=== PATIENT | male | born 1955 | race Caucasian/White ===

== ENCOUNTER 2018-03-02 06:02 | Emergency (ER) | payer OTHER ==
[2018-03-02 06:16] VITALS: TEMP 97.7; BMI 31.9
[2018-03-02] MEDS ORDERED: ASPIRIN 81 MG CHEWABLE TABLETS ONE (06:24)
[2018-03-02] MEDS ORDERED: METOPROLOL TARTRATE 5 MG/5 ML VIAL ONE (06:26)
[2018-03-02] MEDS ORDERED: SODIUM CHLORIDE 0.9% 500 ML INFUS.BAG IV ONE (06:34)
[2018-03-02] MEDS ORDERED: CLOPIDOGREL BISULFATE 300 MG TABLET PO ONE (06:39)
[2018-03-02] MEDS ORDERED: HEPARIN NA (PORCINE) 5,000 UNITS/ML 1ML VIAL IVPUSH PRN (06:39)
[2018-03-02] MEDS ORDERED: CLOPIDOGREL BISULFATE 300 MG TABLET ONE (06:40)
[2018-03-02] MEDS ORDERED: HEPARIN NA (PORCINE) 5,000 UNITS/ML 1ML VIAL ONE (06:40)
[2018-03-02] MEDS ORDERED: METOPROLOL TARTRATE 5 MG/5 ML VIAL IVPUSH ONE (06:40)
[2018-03-02] MEDS ORDERED: HEPARIN INFUSION - 25,000 UNITS/500 ML INFUS.BAG IVPB ONE (06:40)
[2018-03-02 06:41] LABS: BASO % 0.3 % (0-2.0); HEMATOCRIT 54.4 % (35.4-49); HEMOGLOBIN 17.9 GM/dL (11.7-16.9); LYMPH % 13.5 % (8-40); MCH 27.9 pg (25.7-33.7); MCHC 32.9 g/dl (32.0-35.9); MEAN CELL VOLUME 84.6 fl (80-96); MEAN PLT VOLUME 7.6 fl (7.5-11.1); MONO % 12.8 % (3.8-10.2); NEUT % 73.4 % (42.8-82.8); PLATELET COUNT 253 K/MM3 (134-434); RBC 6.44 M/mm3 (4.00-5.60); RDW 13.7 % (11.9-15.9); VENOUS PC02 40.8 mmHg (38-52); VENOUS PH 7.42 (7.32-7.42); WHITE BLOOD COUNT 18.8 K/mm3 (4.0-10.0)
[2018-03-02] MEDS ORDERED: HEPARIN - 25,000 UNIT in SODIUM CHLORIDE 495 ML IV SCH (06:45)
[2018-03-02] MEDS ORDERED: ASPIRIN 81 MG CHEWABLE TABLETS PO ONE (06:50)
--- NOTE | 2018-03-02 06:57 | PDOC ---
History of Present Illness - General Chief Complaint: Shortness of Breath Stated Complaint: S.O.B. Time Seen by Provider: 03/02/18 06:34 History Source: Patient Exam Limitations: No Limitations - History of Present Illness Initial Comments: 62 y/o M hx of HTN presents with sharp CP across chest from yesterday, constant in nature along with SOB, worse with lying flat. Mentions 2 days ago, had some vague R shoulder discomfort while brushing snow; that night he then had L shoulder pain which has now subsided. The CP started yesterday at rest and states he did no physical work yesterday either. +Diaphoresis. Denies recent travel, fever, chills, cough, abd pain, n/v, dizziness, syncope. Denies ever having this type of pain before. Denies cardiac surgeries. Denies smoking or drug use. 03/02/18 06:50 Past History - Past Medical History Allergies/Adverse Reactions: Allergies Allergy/AdvReac Type Severity Reaction Status Date / Time No Known Allergies Allergy Verified 03/02/18 06:16 Home Medications: Ambulatory Orders Losartan/Hydrochlorothiazide [Losartan-Hctz 100-25 mg Tab] 1 each PO DAILY 03/02 COPD: No HTN: Yes - Suicide/Smoking/Psychosocial Hx Smoking History: Never smoked Have you smoked in the past 12 months: No Information on smoking cessation initiated: No Hx Alcohol Use: No Drug/Substance Use Hx: No Substance Use Type: None Cardiac Specific PMH - Complaint Specific PMHX Abdominal Aortic Aneurysm: No Angina: No Cardiac Arrhythmia: No Cardiac Stent: No GERD: No Myocardial Infarction: No Pacemaker: No Pulmonary Embolus: No Valvular Heart Disease: No Peripheral Vascular Disease: No Review of Systems - Review of Systems Comments:: See HPI 03/02/18 06:52 *Physical Exam - Vital Signs Last Vital Signs Temp Pulse Resp BP Pulse Ox 97.7 F 122 H 23 H 119/77 100 03/02/18 06:07 03/02/18 07:05 03/02/18 06:07 03/02/18 06:58 03/02/18 06:28 - Physical Exam General Appearance: Yes: Other (Patient appears diaphoretic but no in respiratory distress) Respiratory/Chest: positive: Other (Unable to auscultate lungs well; no obvious rhonchi, rales or wheezing noted) Cardiovascular: positive: Tachycardia. negative: Gallop/S3, Gallop/S4 Gastrointestinal/Abdominal: positive: Soft. negative: Tender, Distended, Guarding, Rebound, Tenderness Extremity: positive: Normal Inspection. negative: Pedal Edema, Calf Tenderness Neurologic: positive: Fully Oriented, Alert ED Treatment Course - LABORATORY CBC & Chemistry Diagram: 03/02/18 06:34 03/02/18 06:28 - ADDITIONAL ORDERS Additional order review: Laboratory Results 03/02/18 03/02/18 03/02/18 06:34 06:34 06:29 PT with INR 14.80 H INR 1.25 H PTT (Actin FS) 32.2 VBG pH 7.42 POC VBG pCO2 40.8 POC VBG pO2 29.0 Mixed VBG HCO3 25.9 H POC Glucometer 191.34748 03/02/18 06:29 POC Glucometer 191.75508 - RADIOLOGY Radiology Studies Ordered: Category Date Time Status CHEST X-RAY PORTABLE* [RAD] Urgent Radiology 03/02/18 06:29 Taken - Medications Given in the ED: ED Medications Discontinued Medications Generic Name Dose Route Start Last Admin Trade Name Freq PRN Reason Stop Dose Admin Aspirin 324 mg 03/02/18 06:50 03/02/18 06:55 Asa - PO 03/02/18 06:51 324 mg ONCE ONE Administration Clopidogrel Bisulfate 600 mg 03/02/18 06:39 03/02/18 06:50 Plavix - PO 03/02/18 06:40 600 mg ONCE ONE Administration Metoprolol Tartrate 5 mg 03/02/18 06:40 03/02/18 06:10 Lopressor Injection - IVPUSH 03/02/18 06:41 5 mg ONCE ONE Administration Sodium Chloride 2,000 ml 03/02/18 06:34 03/02/18 06:43 Normal Saline - IV 03/02/18 06:35 2,000 ml ONCE ONE Administration Medical Decision Making - Medical Decision Making 62 y/o M hx of HTN presents with diaphoresis, CP and SOB. Initial placement on monitor showed HR in 160s. Initial EKG was hard to read given the fast rhythm, but concern for raised for possible MO. Patient was placed on 2L NC oxygen, 2 IV lines started, FS was done and was normal. Patient was given ASA 325 mg and Metoprolol 5 mg IVP with improvement in HR to 115s. Repeat EKG showed concern for posterior MO with ST depression in V1-V3. Heparin drip was started and patient also received Plavix 600 mg. Portable CXR - wet read done by Dr. Smith with no evidence of fluid overload, PNA, obvious PTX; slightly widened mediastinum was noted. Patient's BP on both arms were the same. 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 Marie at [facility] 03/02/18 07:08 *DC/Admit/Observation/Transfer Diagnosis at time of Disposition: Posterior MO - Discharge Dispostion Disposition: TRANSFER ACUTE CARE/OTHER HOSP Condition at time of disposition: Fair Decision to Admit order: No - Referrals Referrals: Brandon Herrera MD [Primary Care Provider] - - Patient Instructions - Post Discharge Activity - Transfer to Acute Care Facility Receiving Facility: [facility] Accepting Physician:: Dr. Marie
[2018-03-02 06:58] LABS: INR 1.25 (0.83-1.09); PROTHROMBIN TIME (PATIENT) 14.8 SEC (9.7-13.0)
[2018-03-02 07:01] LABS: ACTIVATED PTT 32.2 SECONDS (25.2-36.5)
[2018-03-02 07:02] VITALS: BP 119/77
[2018-03-02 07:06] VITALS: PULSE 122
[2018-03-02 07:24] LABS: ALBUMIN 4.3 g/dl (3.4-5.0); ALK PHOS 78 U/L (45-117); ANION GAP 13 MMOL/L (8-16); BILIRUBIN,TOTAL 3.3 mg/dL (0.2-1); BLOOD UREA NITROGEN 19 mg/dL (7-18); CALCIUM 9.3 mg/dL (8.5-10.1); CHLORIDE 98 mmol/L (98-107); CO2 26 mmol/L (21-32); CREATININE 1.3 mg/dL (0.55-1.3); GLUCOSE,RANDOM 176 mg/dL (74-106); N-TERMINAL BNP 2401.1 pg/ml (5-125); POTASSIUM 4.6 mmol/L (3.5-5.1); SGOT/AST 291 U/L (15-37); SGPT/ALT 94 U/L (13-61); SODIUM 137 mmol/L (136-145); TOT PROT 7.4 g/dl (6.4-8.2)
--- NOTE | 2018-03-03 12:11 | EKG ---
Test Reason : Blood Pressure : / mmHG Vent. Rate : 160 BPM Atrial Rate : 312 BPM P-R Int : 000 ms QRS Dur : 074 ms QT Int : 298 ms P-R-T Axes : 246 166 -20 degrees QTc Int : 486 ms POOR DATA QUALITY, INTERPRETATION MAY BE ADVERSELY AFFECTED ATRIAL FLUTTER WITH VARIABLE A-V BLOCK ABNORMAL RIGHT AXIS DEVIATION LATERAL INFARCT , POSSIBLY ACUTE MARKED ST ABNORMALITY, POSSIBLE ANTERIOR SUBENDOCARDIAL INJURY ABNORMAL ECG WHEN COMPARED WITH ECG OF 30-JUL-2014 09:26, ATRIAL FLUTTER HAS REPLACED NORMAL SINUS RHYTHM ABNORMAL RIGHT AXIS DEVIATION IS NOW PRESENT Confirmed by Jovanny Langley ([id number]) on 03/03/2018 12:10:48 PM Referred By: Confirmed By:Jovanny Langley
--- NOTE | 2018-03-06 15:42 | EKG ---
Test Reason : Blood Pressure : / mmHG Vent. Rate : 123 BPM Atrial Rate : 294 BPM P-R Int : 000 ms QRS Dur : 086 ms QT Int : 364 ms P-R-T Axes : 000 161 011 degrees QTc Int : 521 ms SUSPECT ARM LEAD REVERSAL, INTERPRETATION ASSUMES NO REVERSAL ATRIAL FLUTTER WITH VARIABLE A-V BLOCK RIGHT VENTRICULAR HYPERTROPHY WITH REPOLARIZATION ABNORMALITY LATERAL INFARCT (CITED ON OR BEFORE 02-MAR-2018) ACUTE [place] / STEMI ABNORMAL ECG WHEN COMPARED WITH ECG OF 02-MAR-2018 06:45, SERIAL CHANGES OF LATERAL INFARCT PRESENT Confirmed by CHOLO REESE, JASON ([id number]) on 03/06/2018 3:41:59 PM Referred By: Confirmed By:JASON EMMANUEL MD
--- NOTE | 2018-03-06 15:43 | EKG ---
Test Reason : Blood Pressure : / mmHG Vent. Rate : 120 BPM Atrial Rate : 300 BPM P-R Int : 000 ms QRS Dur : 090 ms QT Int : 294 ms P-R-T Axes : 000 161 -01 degrees QTc Int : 415 ms SUSPECT ARM LEAD REVERSAL, INTERPRETATION ASSUMES NO REVERSAL ATRIAL FLUTTER WITH VARIABLE A-V BLOCK RIGHT VENTRICULAR HYPERTROPHY WITH REPOLARIZATION ABNORMALITY LATERAL INFARCT (CITED ON OR BEFORE 02-MAR-2018) T WAVE ABNORMALITY, CONSIDER INFERIOR ISCHEMIA ACUTE [place] / STEMI ABNORMAL ECG WHEN COMPARED WITH ECG OF 02-MAR-2018 06:31, NO SIGNIFICANT CHANGE WAS FOUND Confirmed by CHOLO REESE, JASON ([id number]) on 03/06/2018 3:42:55 PM Referred By: Confirmed By:JASON EMMANUEL MD
--- NOTE | 2018-03-06 15:43 | EKG ---
Test Reason : Blood Pressure : / mmHG Vent. Rate : 120 BPM Atrial Rate : 300 BPM P-R Int : 000 ms QRS Dur : 092 ms QT Int : 262 ms P-R-T Axes : 202 166 -02 degrees QTc Int : 370 ms SUSPECT ARM LEAD REVERSAL, INTERPRETATION ASSUMES NO REVERSAL ATRIAL FLUTTER WITH VARIABLE A-V BLOCK INCOMPLETE RIGHT BUNDLE BRANCH BLOCK RIGHT VENTRICULAR HYPERTROPHY WITH REPOLARIZATION ABNORMALITY LATERAL INFARCT (CITED ON OR BEFORE 02-MAR-2018) INFERIOR INJURY PATTERN ACUTE [place] / STEMI ABNORMAL ECG WHEN COMPARED WITH ECG OF 02-MAR-2018 06:18, SERIAL CHANGES OF EVOLVING LATERAL INFARCT PRESENT Confirmed by JASON EMMANUEL MD ([id number]) on 03/06/2018 3:42:37 PM Referred By: Confirmed By:JASON EMMANUEL MD
== END 2018-03-02 07:10 | disposition short-term general hospital (02) ==
LOC: JER 06:02
PROC: 3E033GC Introduction of Other Therapeutic Substance into Peripheral Vein, Percutaneous Approach (ICD-10-PCS; principal; 2018-03-02)
PROC: 3E033GC Introduction of Other Therapeutic Substance into Peripheral Vein, Percutaneous Approach (ICD-10-PCS; 2018-03-02)
DX: I21.29 ST elevation (STEMI) myocardial infarction involving other sites (principal); I10 Essential (primary) hypertension
CPT/HCPCS: 36415; 71045-TC-FY; 80053; 82550; 82553; 82803; 82962; 83880; 84484; 85025; 85610; 85730; 93005; 93010; 99285-25; J1644

== ENCOUNTER 2020-09-24 04:26 | Day surgery (SDC) | payer BC ==
[2020-09-23 11:04] VITALS: BMI 31.9
[2020-09-24] MEDS ORDERED: DEXAMETHASONE SOD PHOSPHATE 4 MG/1 ML VIAL ONE (07:28)
[2020-09-24] MEDS ORDERED: DEXAMETHASONE SOD PHOSPHATE 10 MG/1 ML VIAL ONE (09:43)
[2020-09-24] MEDS ORDERED: BUPIVACAINE HCL/PF 0.5% (5MG/ML) 10 ML VIAL ONE (10:12)
[2020-09-24] MEDS ORDERED: LIDOCAINE HCL 1% PRESERVATIVE FREE - 30ML VIAL IJ ONE (10:21)
[2020-09-24] MEDS ORDERED: IOHEXOL 180 MG/1 ML ML IJ ONE (10:22)
[2020-09-24] MEDS ORDERED: DEXAMETHASONE SOD PHOSPHATE 10 MG/1 ML VIAL IM ONE (10:22)
[2020-09-24 10:59] VITALS: BP 122/70; PULSE 58; TEMP 98.3
== END 2020-09-24 11:00 | disposition home or self-care (01) ==
LOC: JASU-SURG 04:26
PROVIDERS: ATTEND Pain Medicine Pain Medicine
PROC: 3E0R33Z Introduction of Anti-inflammatory into Spinal Canal, Percutaneous Approach (ICD-10-PCS; 2020-09-24)
PROC: B01BYZZ Fluoroscopy of Spinal Cord using Other Contrast (ICD-10-PCS; 2020-09-24)
PROC: 3E0R3BZ Introduction of Anesthetic Agent into Spinal Canal, Percutaneous Approach (ICD-10-PCS; principal; 2020-09-24 10:30)
DX: M54.16 Radiculopathy, lumbar region (principal)
CPT/HCPCS: 76000-TC-FY; J1100

== ENCOUNTER 2020-10-22 04:57 | Day surgery (SDC) | payer BC ==
[2020-10-20 14:41] VITALS: BMI 31.3
[2020-10-22] MEDS ORDERED: BUPIVACAINE HCL/PF 0.75% 10 ML VIAL ONE (07:21)
[2020-10-22] MEDS ORDERED: LIDOCAINE HCL/PF 1% SDV 5ML VIAL ONE (07:21)
[2020-10-22] MEDS ORDERED: IOHEXOL 180 MG/1 ML ML IJ ONE (09:45)
[2020-10-22] MEDS ORDERED: BUPIVACAINE HCL/PF 0.75% 10 ML VIAL NR ONE (09:46)
[2020-10-22] MEDS ORDERED: LIDOCAINE 1% P/F 10 MG/ML VIAL INF ONE (09:46)
[2020-10-22 10:40] VITALS: BP 130/80; PULSE 80; TEMP 97
== END 2020-10-22 10:41 | disposition home or self-care (01) ==
LOC: JASU-SURG 04:57
PROVIDERS: ATTEND Pain Medicine Pain Medicine
PROC: BR16YZZ Fluoroscopy of Lumbar Facet Joint(s) using Other Contrast (ICD-10-PCS; 2020-10-22)
PROC: 3E0T3BZ Introduction of Anesthetic Agent into Peripheral Nerves and Plexi, Percutaneous Approach (ICD-10-PCS; principal; 2020-10-22 08:30)
DX: M47.816 Spondylosis without myelopathy or radiculopathy, lumbar region (principal)
CPT/HCPCS: 76000-TC-FY

== ENCOUNTER 2021-07-27 08:00 | Inpatient (IN) | payer BC, OTHER ==
[2021-08-01 11:23] VITALS: BMI 31.9
[2021-08-03] MEDS ORDERED: VANCOMYCIN 1,000 MG VIAL (RESTRICTED TO ID ONLY) ONE (10:57)
[2021-08-03] MEDS ORDERED: BACITRACIN 15 GM TUBE TOPICAL OINTMENT ONE (10:58)
[2021-08-03] MEDS ORDERED: BUPIVACAINE HCL/PF 0.5% (5MG/ML) 10 ML VIAL ONE (10:58)
[2021-08-03] MEDS ORDERED: THROMBIN (BOVINE) 5,000 UNIT VIAL TP ONE ×2 (10:58→14:04)
[2021-08-03] MEDS ORDERED: ONDANSETRON 4 MG/2 ML VIAL IVPUSH PRN ×3 (12:08→14:59)
[2021-08-03] MEDS ORDERED: PROMETHAZINE HCL 25 MG/1 ML VIAL IVPB PRN ×2 (12:08→14:59)
[2021-08-03] MEDS ORDERED: LACTATED RINGERS SOLUTION 1,000 ML IV SCH (12:15)
[2021-08-03] MEDS ORDERED: ROCURONIUM BROMIDE 50 MG/5 ML SYRINGE ONE (12:28)
[2021-08-03] MEDS ORDERED: MIDAZOLAM HCL 2 MG/2 ML SINGLE DOSE VIAL ONE (12:29)
[2021-08-03] MEDS ORDERED: LIDOCAINE HCL/PF 2% SDV 5ML VIAL ONE ×2 (12:30→12:31)
[2021-08-03] MEDS ORDERED: ETOMIDATE 20 MG/10 ML AMPUL IVPUSH ONE (12:30)
[2021-08-03] MEDS ORDERED: GLYCOPYRROLATE 0.2 MG/1 ML VIAL ONE ×2 (12:30→14:32)
[2021-08-03] MEDS ORDERED: SODIUM CHLORIDE 0.9% P/F 10 ML VIAL IJ ONE (12:31)
[2021-08-03] MEDS ORDERED: ceFAZolin SODIUM 1 GM VIAL ONE ×2 (12:31→20:48)
[2021-08-03] MEDS ORDERED: VANCOMYCIN 1,000 MG VIAL (RESTRICTED TO ID ONLY) IVPB ONE (14:03)
[2021-08-03] MEDS ORDERED: BUPIVACAINE HCL/PF 0.5% (5MG/ML) 10 ML VIAL IJ ONE (14:04)
[2021-08-03] MEDS ORDERED: ACETAMINOPHEN INJECTION 100 ML IVPB ONE (14:17)
[2021-08-03] MEDS ORDERED: NEOSTIGMINE METHYLSULFATE 0.5 MG/1 ML - 10 ML MDV ONE (14:32)
[2021-08-03] MEDS ORDERED: ACETAMINOPHEN 325 MG TABLET (FP) PO PRN (14:54)
[2021-08-03] MEDS ORDERED: BISACODYL 10 MG SUPP.RECT RC PRN (14:54)
[2021-08-03] MEDS ORDERED: DEXAMETHASONE SOD PHOSPHATE 4 MG/1 ML VIAL IVPUSH PRN (14:59)
[2021-08-03] MEDS ORDERED: D5-1/2NS+20 MEQ KCL - 1,000 ML IV SCH (15:00)
[2021-08-03] MEDS ORDERED: HYDROmorphone *PCA* 10MG/50ML DISP.SYRIN PCA SCH (15:00)
[2021-08-03] MEDS: D5-1/2NS+20 MEQ KCL - 20 MEQ/1,000 ML INFUS.BAG IV SCH (15:15)
[2021-08-03 16:49] LABS: HEMATOCRIT 41.1 % (35.4-49); HEMOGLOBIN 14.2 GM/dL (11.7-16.9); MCH 29.1 pg (25.7-33.7); MCHC 34.6 g/dl (32.0-35.9); MEAN CELL VOLUME 84.2 fl (80-96); MEAN PLT VOLUME 7.7 fl (7.5-11.1); PLATELET COUNT 199 10^3/uL (134-434); RBC 4.88 M/mm3 (4.00-5.60); RDW 13.6 % (11.9-15.9)
[2021-08-03 17:09] LABS: CALCIUM 8.5 mg/dL (8.5-10.1)
[2021-08-03 17:10] LABS: BLOOD UREA NITROGEN 16.1 mg/dL (7-18)
[2021-08-03] MEDS: diazePAM 5 MG TABLET PO SCH ×2 (19:59→21:57)
[2021-08-03] MEDS: INSULIN SLIDING SCALE (NOVOLOG) 1 VIAL SQ SCH ×2 (20:00→21:53)
[2021-08-03] MEDS ORDERED: DEXTROSE 5%-WATER - 50 ML IVPB ONE (20:48)
[2021-08-03] MEDS: CEFAZOLIN 1 GM in DEXTROSE 5%-WATER - 1 GM/50 ML IVPB IVPB SCH (21:50)
[2021-08-03] MEDS: metoPROLOL SUCCINATE 25 MG TAB.SR.24H (FP) PO SCH (21:56)
[2021-08-03] MEDS: ATORVASTATIN CA 80 MG TABLET (FP) PO SCH (21:56)
[2021-08-03] MEDS: GABAPENTIN 300 MG CAPSULE PO SCH (21:56)
[2021-08-03] MEDS: DOCUSATE SODIUM 100 MG CAPSULE (FP) PO SCH (21:56)
[2021-08-04] MEDS: D5-1/2NS+20 MEQ KCL - 20 MEQ/1,000 ML INFUS.BAG IV SCH (01:55)
[2021-08-04] MEDS ORDERED: ceFAZolin SODIUM 1 GM VIAL ONE ×2 (05:15→12:16)
[2021-08-04] MEDS ORDERED: DEXTROSE 5%-WATER - 50 ML IVPB ONE ×2 (05:15→12:16)
[2021-08-04] MEDS: CEFAZOLIN 1 GM in DEXTROSE 5%-WATER - 1 GM/50 ML IVPB IVPB SCH ×2 (05:17→12:20)
[2021-08-04] MEDS: DOCUSATE SODIUM 100 MG CAPSULE (FP) PO SCH ×3 (05:18→21:16)
[2021-08-04] MEDS: GABAPENTIN 300 MG CAPSULE PO SCH ×3 (05:18→21:16)
[2021-08-04] MEDS: diazePAM 5 MG TABLET PO SCH ×3 (05:18→21:16)
[2021-08-04] MEDS ORDERED: INSULIN (NOVOLOG) ASPART 100 UNITS/ML 10ML VIAL ONE ×2 (05:40→21:00)
[2021-08-04] MEDS: metFORMIN HCL 500 MG TABLET (FP) PO SCH (06:31)
[2021-08-04] MEDS: INSULIN SLIDING SCALE (NOVOLOG) 1 VIAL SQ SCH ×4 (06:31→21:21)
[2021-08-04] MEDS: LOSARTAN 50MG/HCTZ 12.5MG 1 TAB PO SCH (10:47)
[2021-08-04] MEDS: CHOLECALCIFEROL (VIT D3) 400 UNIT (10 MCG) TABLET PO SCH (10:47)
[2021-08-04] MEDS ORDERED: ACETAMINOPHEN 325 MG TABLET (FP) PO PRN ×2 (19:30)
[2021-08-04] MEDS ORDERED: oxyCODONE HCL 5 MG TABLET PO PRN (19:30)
[2021-08-04] MEDS: oxyCODONE HCL 5 MG TABLET PO PRN (21:12)
[2021-08-04] MEDS: metoPROLOL SUCCINATE 25 MG TAB.SR.24H (FP) PO SCH (21:15)
[2021-08-04] MEDS: ATORVASTATIN CA 80 MG TABLET (FP) PO SCH (21:15)
[2021-08-05] MEDS: diazePAM 5 MG TABLET PO SCH ×3 (06:30→22:01)
[2021-08-05] MEDS: metFORMIN HCL 500 MG TABLET (FP) PO SCH (06:30)
[2021-08-05] MEDS: INSULIN SLIDING SCALE (NOVOLOG) 1 VIAL SQ SCH ×4 (06:31→22:01)
[2021-08-05] MEDS: GABAPENTIN 300 MG CAPSULE PO SCH ×3 (06:31→22:01)
[2021-08-05] MEDS: DOCUSATE SODIUM 100 MG CAPSULE (FP) PO SCH ×3 (06:31→22:00)
[2021-08-05] MEDS: CHOLECALCIFEROL (VIT D3) 400 UNIT (10 MCG) TABLET PO SCH (09:43)
[2021-08-05] MEDS: LOSARTAN 50MG/HCTZ 12.5MG 1 TAB PO SCH (09:44)
[2021-08-05] MEDS: oxyCODONE HCL 5 MG TABLET PO PRN ×2 (10:02→14:16)
[2021-08-05] MEDS ORDERED: INSULIN (NOVOLOG) ASPART 100 UNITS/ML 10ML VIAL ONE ×2 (11:25→21:51)
[2021-08-05] MEDS: metoPROLOL SUCCINATE 25 MG TAB.SR.24H (FP) PO SCH (22:01)
[2021-08-05] MEDS: ATORVASTATIN CA 80 MG TABLET (FP) PO SCH (22:01)
[2021-08-06] MEDS: metFORMIN HCL 500 MG TABLET (FP) PO SCH (06:28)
[2021-08-06] MEDS: diazePAM 5 MG TABLET PO SCH ×3 (06:28→21:09)
[2021-08-06] MEDS: GABAPENTIN 300 MG CAPSULE PO SCH ×3 (06:29→21:10)
[2021-08-06] MEDS: INSULIN SLIDING SCALE (NOVOLOG) 1 VIAL SQ SCH ×4 (06:29→21:10)
[2021-08-06] MEDS: DOCUSATE SODIUM 100 MG CAPSULE (FP) PO SCH ×3 (06:29→21:09)
[2021-08-06] MEDS: LOSARTAN 50MG/HCTZ 12.5MG 1 TAB PO SCH (09:04)
[2021-08-06] MEDS: CHOLECALCIFEROL (VIT D3) 400 UNIT (10 MCG) TABLET PO SCH (09:04)
[2021-08-06] MEDS ORDERED: MAGNESIUM CITRATE 300 ML BOTTLE PO ONE (09:41)
[2021-08-06] MEDS ORDERED: INSULIN (NOVOLOG) ASPART 100 UNITS/ML 10ML VIAL ONE (11:27)
[2021-08-06] MEDS: metoPROLOL SUCCINATE 25 MG TAB.SR.24H (FP) PO SCH (21:08)
[2021-08-06] MEDS: ATORVASTATIN CA 80 MG TABLET (FP) PO SCH (21:09)
[2021-08-07] MEDS: oxyCODONE HCL 5 MG TABLET PO PRN (03:27)
[2021-08-07] MEDS: diazePAM 5 MG TABLET PO SCH ×3 (06:22→21:38)
[2021-08-07] MEDS: DOCUSATE SODIUM 100 MG CAPSULE (FP) PO SCH ×3 (06:23→21:38)
[2021-08-07] MEDS: GABAPENTIN 300 MG CAPSULE PO SCH ×3 (06:23→21:38)
[2021-08-07] MEDS: metFORMIN HCL 500 MG TABLET (FP) PO SCH (06:24)
[2021-08-07] MEDS: INSULIN SLIDING SCALE (NOVOLOG) 1 VIAL SQ SCH ×4 (06:25→21:44)
[2021-08-07] MEDS: CHOLECALCIFEROL (VIT D3) 400 UNIT (10 MCG) TABLET PO SCH (09:17)
[2021-08-07] MEDS: LOSARTAN 50MG/HCTZ 12.5MG 1 TAB PO SCH (09:17)
[2021-08-07] MEDS: FLUTICASONE/SALMETEROL 100 MCG/50 MCG DISKUS IH SCH ×2 (09:17→21:44)
[2021-08-07] MEDS ORDERED: INSULIN (NOVOLOG) ASPART 100 UNITS/ML 10ML VIAL ONE (10:52)
[2021-08-07] MEDS: ATORVASTATIN CA 80 MG TABLET (FP) PO SCH (21:37)
[2021-08-07] MEDS: metoPROLOL SUCCINATE 25 MG TAB.SR.24H (FP) PO SCH (21:40)
[2021-08-08] MEDS: DOCUSATE SODIUM 100 MG CAPSULE (FP) PO SCH ×2 (05:53→14:09)
[2021-08-08] MEDS: GABAPENTIN 300 MG CAPSULE PO SCH ×2 (05:53→14:09)
[2021-08-08] MEDS: diazePAM 5 MG TABLET PO SCH ×2 (05:54→14:09)
[2021-08-08] MEDS: metFORMIN HCL 500 MG TABLET (FP) PO SCH (06:39)
[2021-08-08] MEDS: INSULIN SLIDING SCALE (NOVOLOG) 1 VIAL SQ SCH ×3 (06:39→17:09)
[2021-08-08] MEDS ORDERED: DEXAMETHASONE SOD PHOSPHATE 4 MG/1 ML VIAL IVPUSH ONE (08:45)
[2021-08-08] MEDS: FLUTICASONE/SALMETEROL 100 MCG/50 MCG DISKUS IH SCH (10:19)
[2021-08-08] MEDS: CHOLECALCIFEROL (VIT D3) 400 UNIT (10 MCG) TABLET PO SCH (10:19)
[2021-08-08] MEDS: LOSARTAN 50MG/HCTZ 12.5MG 1 TAB PO SCH (10:19)
[2021-08-08] MEDS: CEPHALEXIN MONOHYDRATE 500 MG CAPSULE (UD) PO SCH ×2 (11:41→17:10)
[2021-08-08] MEDS ORDERED: INSULIN (NOVOLOG) ASPART 100 UNITS/ML 10ML VIAL ONE (11:41)
[2021-08-08 14:15] VITALS: BP 123/67; PULSE 69; TEMP 98.8
[2021-08-08 16:24] LABS: BASO % 0.3 % (0-2.0); EOS % 0.2 % (0-4.5); HEMATOCRIT 41.5 % (35.4-49); HEMOGLOBIN 14.7 GM/dL (11.7-16.9); LYMPH % 7.9 % (8-40); MCH 29.1 pg (25.7-33.7); MCHC 35.3 g/dl (32.0-35.9); MEAN CELL VOLUME 82.3 fl (80-96); MEAN PLT VOLUME 7.3 fl (7.5-11.1); MONO % 6.8 % (3.8-10.2); NEUT % 84.8 % (42.8-82.8); PLATELET COUNT 257 10^3/uL (134-434); RBC 5.04 M/mm3 (4.00-5.60); RDW 13.6 % (11.9-15.9); WHITE BLOOD COUNT 5.7 K/mm3 (4.0-10.0)
[2021-08-08 16:33] LABS: CREATININE 0.9 mg/dL (0.55-1.3)
[2021-08-09 12:11] LABS: SARS-CoV-2 NAA Not Detected (Not Detected)
== END 2021-08-08 19:02 | DRG 520 ==
LOC: J2C 08-03 04:24 → J6S 08-03 19:50
PROVIDERS: ADMIT Orthopaedic Surgery; ATTEND Orthopaedic Surgery
PROC: 01NB0ZZ Release Lumbar Nerve, Open Approach (ICD-10-PCS; 2021-08-03)
PROC: 0SB20ZZ Excision of Lumbar Vertebral Disc, Open Approach (ICD-10-PCS; principal; 2021-08-03 13:00)
DX: M51.16 Intervertebral disc disorders with radiculopathy, lumbar region (principal); M48.061 Spinal stenosis, lumbar region without neurogenic claudication
CPT/HCPCS: 36415; 72100-TC-FY; 80048; 82565; 82962; 85025; 85027; 86850; 86900; 86901; 88304-TC; 94010; 94760; 97116-GP; 97161-GP; C9803-CS; U0003; U0005

== ENCOUNTER 2022-07-06 05:25 | Day surgery (SDC) | payer OTHER, BC ==
[2022-07-05 09:42] VITALS: BMI 31.0
[2022-07-06 09:51] VITALS: RESP 18; TEMP 97.9
[2022-07-06 11:06] VITALS: BP 139/90; PULSE 67
== END 2022-07-06 10:33 | disposition home or self-care (01) ==
LOC: JASU-ENDO 05:25
PROVIDERS: ATTEND Internal Medicine Gastroenterology
PROC: 0DBL8ZX Excision of Transverse Colon, Via Natural or Artificial Opening Endoscopic, Diagnostic (ICD-10-PCS; 2022-07-06)
PROC: 0DBN8ZX Excision of Sigmoid Colon, Via Natural or Artificial Opening Endoscopic, Diagnostic (ICD-10-PCS; 2022-07-06)
PROC: 0DBP8ZX Excision of Rectum, Via Natural or Artificial Opening Endoscopic, Diagnostic (ICD-10-PCS; 2022-07-06)
PROC: 0DBK8ZX Excision of Ascending Colon, Via Natural or Artificial Opening Endoscopic, Diagnostic (ICD-10-PCS; principal; 2022-07-06 09:00)
DX: Z12.11 Encounter for screening for malignant neoplasm of colon (principal); D12.2 Benign neoplasm of ascending colon; D12.3 Benign neoplasm of transverse colon; D12.5 Benign neoplasm of sigmoid colon; D12.8 Benign neoplasm of rectum; K64.8 Other hemorrhoids; K57.30 Diverticulosis of large intestine without perforation or abscess without bleeding; Z86.010 Personal history of colon polyps
CPT/HCPCS: 82962; 88305-TC